=== PATIENT | female | born 1970 | race Two or more races ===

== ENCOUNTER 2018-10-21 16:32 | Emergency (ER) | payer OTHER ==
[~2018-10-21] VITALS: Ht 165.1 cm; Wt 58.1 kg
[~2018-10-21 16:32] MED LIST: LEVOTHYROXINE125 MCG ORAL
[2018-10-21 16:40] VITALS: BP 130/92
[2018-10-21 17:29] LABS: APPEARANCE,URINE CLEAR; BILIRUBIN, URINE NEGATIVE (NEGATIVE); COLOR,URINE PALE YELLOW; GLUCOSE, URINE (UA) NEGATIVE (NEGATIVE); KETONES,URINE NEGATIVE (NEGATIVE); LEUKOCYTE ESTERASE ,URINE 1+ (NEGATIVE); NITRITE,URINE NEGATIVE (NEGATIVE); PH,URINE 5 (4.5-8.0); PROTEIN,URINE NEGATIVE (NEGATIVE); UROBILINOGEN,URINE NORMAL MG/DL (0.0-1.0)
--- NOTE | 2018-10-21 17:29 | Emergency Room Report ---
History of Present Illness General Chief Complaint: Behavioral Complaint Source: Patient Present Illness HPI 48-year-old female with no significant past medical history brought in by the paramedics prior psychiatric clearance. Patient was at home with her got into an argument and tried to swallow a bunch of levothyroxine pills however does get them out immediately. Patient denies ever being suicidal or having suicidal ideations and says that she was simply trying to make points to her 's of her would leave. Denies any suicidal plans at this time homicidal ideation, and reports that she has never happened in the past. Patient repeatedly says I am sorry that I am wasting your time but I do know that I have to be here for clearance as my called the paramedics. Patient denies any physical or sexual abuse. Already has a psychiatrist in mind to follow-up with. Denies any drug use, alcohol intake, and says that the only medication she takes on daily basis as levothyroxine for her hypothyroidism. Denies chest pain, shortness of breath, palpitation, abdominal pain, nausea vomiting and all other associated symptoms. Patient History Past Medical History: see triage record Past Surgical History: unable to obtain Family History: unable to obtain Social History: Last Menstrual Period: 09/2018 Now: No Immunizations: UTD Reviewed Nursing Documentation: PMH: Agreed; PSxH: Agreed Nursing Documentation-PMH Past Medical History: No History, Except For Review of Systems All Other Systems: negative except mentioned in HPI Physical Exam Vital Signs Date Time Temp Pulse Resp B/P (MAP) Pulse Ox O2 Delivery O2 Flow Rate FiO2 10/21/18 16:28 97.9 88 22 130/92 (105) 100 Room Air Sp02 EP Interpretation: reviewed, normal General Appearance: normal inspection, alert/responsive Head: normocephalic Eyes: normal eye exam, PERRL, EOMI ENT: normal ENT inspection, TMs + canals normal Neck: normal inspection, supple/symm/no masses Respiratory: normal inspection, effort normal, no rhonchi, no wheezing Cardiovascular: normal inspection, regular rate, rhythm, no murmur, gallop, rub , no edema Gastrointestinal: normal inspection, non-tender, non-distended Musculoskeletal: normal inspection, gait & station normal Neurologic: normal inspection, CN II-XII intact, oriented x3 Psychiatric: judgment & insight normal, memory normal, no suicidal/homicidal ideation, no delusions, anxious Skin: normal inspection, no rash Lymphatic: normal inspection, normal cervical nodes Medical Decision Making PA Attestation All my diagnosis and treatment plans were reviewed ad discussed with my supervising physician Dr. Qureshi Diagnostic Impression: Primary Impression: Self-destructive behavior ER Course 48-year-old female with no significant past medical history brought in by the paramedics prior psychiatric clearance. Patient was at home with her got into an argument and tried to swallow a bunch of levothyroxine pills however does get them out immediately. Patient denies ever being suicidal or having suicidal ideations and says that she was simply trying to make points to her 's of her would leave. Denies any suicidal plans at this time homicidal ideation, and reports that she has never happened in the past. Patient repeatedly says I am sorry that I am wasting your time but I do know that I have to be here for clearance as my called the paramedics. Patient denies any physical or sexual abuse. Already has a psychiatrist in mind to follow-up with. Denies any drug use, alcohol intake, and says that the only medication she takes on daily basis as levothyroxine for her hypothyroidism. Denies chest pain, shortness of breath, palpitation, abdominal pain, nausea vomiting and all other associated symptoms. Ddx considered but are not limited to: generalized anxiety disorder, panic attack, depression with psycotic featurs, bipolar disorder, drug overdose . Suicidal ideation, suicidal gesture, suicidal attempts Vital signs: are WNL, pt. is afebrile H&PE are most consistent with: self-destructive behavior ORDERS: Psychiatric panel ED INTERVENTIONS: None required at this time. DISCHARGE: At this time pt. is stable for d/c to home. Will provide printed patient care instructions, and any necessary prescriptions. Care plan and follow up instructions have been discussed with the patient prior to discharge. After calling her and no response I contacted poison control per Dr. Qureshi's recommendation gave patient presentation and vital signs as well as lab reports and was recommended to observe patient for another hour and to send her home with possible signs of overdose of levothyroxine as they could appear even 1 week from now. However the T3-T4 hormone levels were elevated which are suggestive of patient actually took those pills even though she continued to deny in taking it and as she said that she spit them out. Patient denies any suicidal or homicidal ideation and agrees to leave and seek psychiatric help if needed. Patient also has an appointment with her parent primary care doctor beginning of November. After consulting with Dr. Qureshi patient was cleared to leave and given ER precautions if anxiety, tremor, palpitation. Vital signs are within normal limits later during the day with slightly elevated high blood pressure. T3 and T4 elevated EKG Diagnostic Results Rate: normal Rhythm: NSR ST Segments: no acute changes Chest X-Ray Diagnostic Results Chest X-Ray Diagnostic Results : Chest X-Ray Ordered: Yes # of Views/Limited/Complete: 1 View, 2 View Indication: Other EP Interpretation: Yes Interpretation: no consolidation, no effusion, no pneumothorax, no acute cardiopulmonary disease Impression: No acute disease Electronically Signed by: moisés rodriguez PA-C Last Vital Signs Date Time Temp Pulse Resp B/P (MAP) Pulse Ox O2 Delivery O2 Flow Rate FiO2 10/21/18 16:40 88 22 Room Air 10/21/18 16:40 97.9 130/92 100 Disposition: HOME, SELF-CARE Condition: Stable Patient Instructions: Self-Destructive Behavior Additional Instructions: Watch for signs of tremor, anxiety, elevated blood pressure, palpitation, sweating and return to the emergency room immediately you may experience these symptoms even a week later after ingestion of levothyroxine. At this time you agreed to have no self-harm as well as denying any suicidal ideations, and homicidal ideations. Follow-up with your psychiatrist your primary care provider. Moisés [place] Oct 21, 2018 17:29
--- NOTE | 2018-10-21 17:32 | NUR ---
ED Nurse Note: PT AAOX4. AMBULATORY.BROUGHT IN BY [facility] FROM HOME DUE TO A BEHAVIORAL GESTURE, PT HAD A VERBAL ARGUMENT WITH AND TOOK A HANDFUL OF LEVOTHYROXINE PILLS. PT STATES SHE PUT THEM IN HER MOUTH AND SPIT THEM OUT RIGHT AWAY. PT DENIES SI/HI.
--- NOTE | 2018-10-21 17:33 | NUR ---
ED Nurse Note: PT. CHANGED INTO A GREEN GOWN
[2018-10-21 17:39] LABS: BASOPHILS % (AUTO) 0.9 % (0.0-2.0); EOSINOPHILS % (AUTO) 2.2 % (0.0-3.0); HEMATOCRIT 43.3 % (37.0-47.0); HEMOGLOBIN 14.5 G/DL (12.0-16.0); LYMPHOCYTES % (AUTO) 24.1 % (20.0-45.0); MEAN CORPUSCULAR VOLUME 92 FL (80-99); NEUTROPHILS % (AUTO) 63.8 % (45.0-75.0); PLATELET COUNT 169 K/UL (150-450); RED BLOOD COUNT 4.71 M/UL (4.20-5.40); RED CELL DISTRIBUTION WIDTH 10.9 % (11.6-14.8); WHITE BLOOD COUNT 6.5 K/UL (4.8-10.8)
[2018-10-21 18:00] LABS: ALANINE AMINOTRANSFERASE 21 U/L (12-78); ALBUMIN 4.8 G/DL (3.4-5.0); ALBUMIN/GLOBULIN RATIO 1.6 (1.0-2.7); ALKALINE PHOSPHATASE 53 U/L (46-116); ANION GAP 9 mmol/L (5-15); ASPARTATE AMINO TRANSFERASE 18 U/L (15-37); BILIRUBIN,DIRECT 0.2 MG/DL (0.0-0.3); BILIRUBIN,TOTAL 1.1 MG/DL (0.2-1.0); BLOOD UREA NITROGEN 23 mg/dL (7-18); CALCIUM 10.1 MG/DL (8.5-10.1); CARBON DIOXIDE 28 MMOL/L (21-32); CHLORIDE 105 MMOL/L (98-107); CREATINE KINASE 83 U/L (26-308); CREATININE 1.3 MG/DL (0.55-1.30); POTASSIUM 4.1 MMOL/L (3.5-5.1); SODIUM 142 MMOL/L (136-145)
[2018-10-21 18:57] VITALS: BP 150/102
[2018-10-21 19:16] VITALS: BP 135/88
--- NOTE | 2018-10-21 19:17 | NUR ---
ER DISCHARGE NOTE: Patient is cleared to be discharged per ERMD, pt is aox4, on room air, with stable vital signs. pt was given dc and prescription instructions, pt was able to verbalize understanding, pt id band and iv site removed without complications. pt is able to ambulate with steady gait. pt took all belongings.
--- NOTE | 2018-10-22 13:15 | Diagnostic Imaging Report ---
Indication: Chest pain Comparison: None A single view chest radiograph was obtained. Findings: Cardiomediastinal appearance is within normal limits for age. The lungs are clear. Pulmonary vascularity is appropriate. The diaphragmatic contour is smooth and costophrenic angles are sharp. No pleural effusions are identified. The bones are unremarkable. Impression: No acute findings
--- NOTE | 2018-10-23 16:10 | Cardiology Report ---
APPROVED REPORT EKG Measurement Heart [id number] Normal sinus rhythm Low voltage QRS Septal infarct, age undetermined Abnormal ECG
== END 2018-10-21 19:17 | disposition home or self-care (01) ==
LOC: EDBD 16:32 → EMR 18:02
DX: F60.89 Other specific personality disorders (principal)
CPT/HCPCS: 71045; 80053; 80307; 80329; 81003; 81025; 82248; 82550; 84439; 84443; 84481; 85025; 93005; 99284